=== PATIENT | female | born 2000 | race Hispanic/Latino ===

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

== ENCOUNTER 2021-03-16 16:44 | Emergency (ER) | payer BC, MEDICAID ==
[~2021-03-16] VITALS: Ht 162.6 cm; Wt 68.0 kg
[2021-03-16] MEDS ORDERED: LIDOCAINE HCL-MPF 1% 2ML VIAL ONE (17:37)
[2021-03-16] MEDS ORDERED: LIDOCAINE HCL 400MG/20ML VIAL ONE (17:45)
[2021-03-16] MEDS ORDERED: CLIN-141 PO (19:29)
[2021-03-16] MEDS ORDERED: ACET1TAB25 PO (19:29)
[2021-03-16 19:42] VITALS: BP 121/83
== END 2021-03-16 19:43 | disposition home or self-care (01) ==
LOC: EDH 16:44
DX: S80.252A Superficial foreign body, left knee, initial encounter (principal); W26.8XXA Contact with other sharp object(s), not elsewhere classified, initial encounter; Y93.89 Activity, other specified; Y92.89 Other specified places as the place of occurrence of the external cause; Y99.8 Other external cause status
CPT/HCPCS: 10120; 73562; 99283; J3490 ×2